=== PATIENT | male | born 1990 | race Caucasian/White ===

== ENCOUNTER 2021-03-10 18:14 | Inpatient (IN) | payer BC ==
[~2021-03-10] VITALS: Ht 175.3 cm; Wt 74.8 kg
[2021-03-10] MEDS ORDERED: ONDANSETRON HCL 4MG/2ML INJ IV ONE (19:30)
[2021-03-10] MEDS ORDERED: KETOROLAC 30MG/ML VIAL IV ONE (19:30)
[2021-03-10] MEDS ORDERED: DEXTROSE 10% WATER 1,000 ML IV ONE ×2 (22:15→23:45)
[2021-03-10 23:05] LABS: HEMATOCRIT. 43.9 % (42.0-52.0); HEMOGLOBIN. 14.9 g/dL (14.0-18.0); MEAN CORPUSCULAR VOLUME 91.1 fL (80.0-94.0); MEAN PLATELET VOLUME 9.5 fl (7.4-10.4); PLATELET 173 x1000/uL (130-400); RED BLOOD CELL COUNT 4.81 mill/uL (4.7-6.1); RED CELL DISTRIBUTION WIDTH 13.3 % (11.6-14.6)
[2021-03-10 23:11] LABS: CHLORIDE 105 mEq/L (98-107)
[2021-03-10 23:15] LABS: ETHANOL BLOOD < 10 mg/dL
[2021-03-10 23:50] LABS: PLATELET ESTIMATE NORMAL
[2021-03-11] MEDS ORDERED: ACETAMINOPHEN 325MG TABLET PO PRN ×2
[2021-03-11] MEDS ORDERED: ONDANSETRON HCL 4MG/2ML INJ IV PRN
[2021-03-11] MEDS ORDERED: GUAIFENESIN 200MG/10ML SUGAR FREE UDC PO PRN
[2021-03-11 04:50] LABS: CHLORIDE 103 mEq/L (98-107)
[2021-03-11 04:58] LABS: PHOSPHORUS 3.9 mg/dL (2.5-4.9)
[2021-03-11 05:00] LABS: BASOPHILS % 0.2 % (0.0-2.0); EOSINOPHILS % 0.2 % (0.0-5.0); HEMATOCRIT. 40.5 % (42.0-52.0); HEMOGLOBIN. 13.8 g/dL (14.0-18.0); LYMPHOCYTES % 10.7 % (20.0-50.0); MEAN CORPUSCULAR VOLUME 91.3 fL (80.0-94.0); MEAN PLATELET VOLUME 10.3 fl (7.4-10.4); MONOCYTES % 9.4 % (2.0-8.0); NEUTROPHILS % 79.5 % (40.0-76.0); PLATELET 178 x1000/uL (130-400); RED BLOOD CELL COUNT 4.44 mill/uL (4.7-6.1); RED CELL DISTRIBUTION WIDTH 13.1 % (11.6-14.6)
[2021-03-11 08:00] VITALS: BP 128/73
[2021-03-11 10:27] VITALS: BP 128/73
[2021-03-11 12:00] VITALS: BP 109/51
[2021-03-11] MEDS: ENOXAPARIN 40MG/0.4ML SYR SUBCUT SCH (12:50)
[2021-03-11] MEDS ORDERED: INFLUENZA VACCINE 05/PF 0.5 ML SYRINGE IM ONE (13:00)
[2021-03-11 16:00] VITALS: BP_SYST 116; BP_SYST 121; BP_SYST 141; BP_DIAS 60; BP_DIAS 76; BP_DIAS 84
[2021-03-11 17:25] LABS: CREATINE KINASE 167 IU/L (39-308)
[2021-03-11 17:27] LABS: CREATINE KINASE MB FRACTION < 1.0 ng/mL (0.5-3.6)
[2021-03-11 20:00] VITALS: BP 120/82
[2021-03-12] VITALS: BP 120/61
[2021-03-12 00:57] LABS: CREATINE KINASE 143 IU/L (39-308)
[2021-03-12 00:58] LABS: CREATINE KINASE MB FRACTION < 1.0 ng/mL (0.5-3.6)
[2021-03-12 04:00] VITALS: BP_SYST 112; BP_SYST 118; BP_SYST 125; BP_DIAS 71; BP_DIAS 80; BP_DIAS 83
[2021-03-12 08:00] VITALS: BP_SYST 115; BP_SYST 120; BP_SYST 124; BP_DIAS 75; BP_DIAS 81
[2021-03-12 08:07] LABS: BASOPHILS % 0.7 % (0.0-2.0); HEMOGLOBIN. 13.5 g/dL (14.0-18.0); LYMPHOCYTES % 30.4 % (20.0-50.0); MEAN CORPUSCULAR VOLUME 91.7 fL (80.0-94.0); MONOCYTES % 10.3 % (2.0-8.0); NEUTROPHILS % 53.6 % (40.0-76.0); PLATELET 164 x1000/uL (130-400); RED BLOOD CELL COUNT 4.36 mill/uL (4.7-6.1); RED CELL DISTRIBUTION WIDTH 13.2 % (11.6-14.6)
[2021-03-12 08:08] LABS: CHLORIDE 107 mEq/L (98-107)
[2021-03-12 08:13] LABS: PHOSPHORUS 2.6 mg/dL (2.5-4.9)
[2021-03-12 08:16] LABS: CREATINE KINASE 126 IU/L (39-308)
[2021-03-12 08:19] LABS: CREATINE KINASE MB FRACTION < 1.0 ng/mL (0.5-3.6)
[2021-03-12] MEDS: ENOXAPARIN 40MG/0.4ML SYR SUBCUT SCH (09:38)
[2021-03-12 12:00] VITALS: BP_SYST 120; BP_SYST 121; BP_SYST 127; BP_DIAS 72; BP_DIAS 81; BP_DIAS 82
[2021-03-12 15:32] LABS: CREATINE KINASE 120 IU/L (39-308); CREATINE KINASE MB FRACTION < 1.0 ng/mL (0.5-3.6)
[2021-03-12 17:22] LABS: CLARITY URINE CLEAR (CLEAR); COLOR URINE YELLOW (YELLOW); KETONES URINE NEGATIVE (NEGATIVE); LEUKOCYTE ESTERASE URINE NEGATIVE (NEGATIVE); NITRITE URINE NEGATIVE (NEGATIVE); OCCULT BLOOD URINE NEGATIVE (NEGATIVE); PROTEIN URINE NEGATIVE (NEGATIVE); SPECIFIC GRAVITY URINE 1.005 (1.005-1.030); UROBILINOGEN URINE 0.2 E.U./dL (0.2-1.0)
[2021-03-12 17:33] LABS: *AMPHETAMINES SCREEN URINE NEGATIVE (NEGATIVE); *BARBITURATES SCREEN URINE NEGATIVE (NEGATIVE); *BENZODIAZEPINES SCREEN URINE NEGATIVE (NEGATIVE); *COCAINE SCREEN URINE NEGATIVE (NEGATIVE); METHADONE URINE SCREEN NEGATIVE (NEGATIVE)
[2021-03-12 17:34] LABS: CANNABINOID URINE SCREEN NEGATIVE (NEGATIVE); OPIATES URINE SCREEN NEGATIVE (NEGATIVE); PHENCYCLIDINE URINE SCREEN NEGATIVE (NEGATIVE)
[2021-03-12 20:00] VITALS: BP 135/81
[2021-03-12 20:18] VITALS: BP 135/81
== END 2021-03-12 20:35 | disposition home or self-care (01) | DRG 74 ==
LOC: ER 18:14 → 7EST 23:39 → SUPCPDRO 23:41 → ENRESERV 03-11 07:23
PROVIDERS: ADMIT Internal Medicine; ATTEND Internal Medicine
DX: G90.8 Other disorders of autonomic nervous system (principal); I95.9 Hypotension, unspecified; E16.2 Hypoglycemia, unspecified; F12.90 Cannabis use, unspecified, uncomplicated; F17.200 Nicotine dependence, unspecified, uncomplicated; D72.829 Elevated white blood cell count, unspecified; Z87.448 Personal history of other diseases of urinary system; R00.0 Tachycardia, unspecified; Z82.49 Family history of ischemic heart disease and other diseases of the circulatory system; Z20.822 Contact with and (suspected) exposure to COVID-19; R00.1 Bradycardia, unspecified; S06.0X0A Concussion without loss of consciousness, initial encounter
CPT/HCPCS: 36415; 71045; 80048; 80305; 80320; 81003; 82550; 82553; 82570; 82962; 83605; 83735; 83880; 84100; 84145; 84156; 84439; 84443; 84484; 85025; 87426; 90686; 93005; 93306; 93880; 99285; J1650; J1885; J2405; G0480